=== PATIENT | female | born 2000 | race Caucasian/White ===

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

== ENCOUNTER 2024-07-31 13:17 | Emergency (ER) | payer MEDICAID ==
[~2024-07-31] VITALS: Ht 157.5 cm; Wt 92.5 kg
[2024-07-31 13:22] VITALS: BP 129/66; PULSE 94; TEMP 98.1; O2SAT 98
[2024-07-31] MEDS ORDERED: PROM118S5 PO (14:17)
[2024-07-31] MEDS ORDERED: ALBU8HFA INH (14:17)
[2024-07-31 14:22] VITALS: RESP 18
== END 2024-07-31 14:23 | disposition home or self-care (01) ==
LOC: ER 13:18
DX: B34.9 Viral infection, unspecified (principal); Z88.6 Allergy status to analgesic agent
CPT/HCPCS: 71045; 87502; 87503; 99284

== ENCOUNTER 2024-12-22 16:33 | Emergency (ER) | payer MEDICAID ==
[~2024-12-22] VITALS: Ht 157.5 cm; Wt 106.3 kg
[2024-12-22 16:37] VITALS: BP 132/84; PULSE 97; RESP 18; O2SAT 96
[2024-12-22] MEDS ORDERED: HYDR-3965 PO (17:30)
[2024-12-22] MEDS ORDERED: CLIN-97 PO (17:30)
--- NOTE | 2024-12-22 17:31 | Physician Documentation ---
HPI ~ General Chief Complaint: Tooth Problem Stated Complaint: MOUTH PAIN Time Seen by MD: 17:21 OK to notify your PCP?: Yes Source: patient Mode of Arrival: POV Exam Limitations: no limitations History of Present Illness HPI Comment This is a 24-year-old female who comes in complaining of some left-sided jaw pain with some mild facial swelling that began yesterday. She states that is she has a bad teeth are entire life but has not not then to see a dentist because there was not want available. States the pain radiates up to the left ear in his worse with opening and closing of the jaw. She denies fever or chills. Medication Reconciliation Allergies: Coded Allergies: ibuprofen (Verified Adverse Reaction, Unknown, STOMACH UPSET, 12/22/24) Scheduled Clindamycin HCL* (Clindamycin HCL*), 1 CAP PO Q6H Scheduled PRN Hydrocodone Bit/Acetaminophen 5/325 MG ([place] 5/325 MG), 1 TAB PO Q4H PRN for moderate or severe pain Past Medical History Past Medical History: *PSYCH* Past Surgical History: no surgical history Lives In: Home Physical Exam Vital Signs: Temperature: 98.9, Source: Temporal, Heart Rate: 97, Respiratory Rate: 18, BP: 132/84, Pulse Oximetry: 96, Weight: 106.300 Oxygen Flow Rate: 0 Pulse Oximetry Reflects: adequate oxygenation General Appearance: alert, WD/WN, no apparent distress Ear Bilateral EACs and TMs are within normal limits Teeth/Gums The patient has decayed teeth with caries in the left mandible jaw line. It mild erythema of the surrounding gums. No purulent discharge. Face Subtle edema to the left outer face with the area of the cheek in the mandible. No change in overlying skin color or temperature. No obvious fluctuance to palpation of the area of the there is tenderness of the mandible. Neurologic: guard immigration II-XII nml as tested Progress Results/Orders Results/Orders Vital Signs 12/22/24 12/22/24 16:37 17:47 Temp 98.9 98.9 Pulse 97 Resp 18 B/P (MAP) 132/84 Pulse Ox 96 O2 Flow Rate 0 Medical Decision Making Findings I will place the patient on clindamycin 300 mg 4 times a day for 10 days. You can follow up with a dentist for definitive care. Overall the patient is well- appearing Additional Comment dental infection. Periapical abscess. Facial cellulitis. Departure Disposition: HOME / SELF CARE / HOMELESS Impression: Primary Impression: Dental infection Condition: Stable Discharge Instructions: Dental Abscess, [id number] Additional Instructions: Take the medications as prescribed. Follow up with a dentist for definitive care. Referrals: NO PRIMARY CARE PROVIDER (PCP) Prescriptions Hydrocodone Bit/Acetaminophen 5/325 MG ([place] 5/325 MG) 5 Mg/325 Mg Tablet 1 TAB PO Q4H PRN for moderate or severe pain, #10 TAB Prov: NANCY MILES 12/22/24 Clindamycin HCL* (Clindamycin HCL*) 300 Mg Capsule 1 CAP PO Q6H, #40 CAP Prov: NANCY MILES 12/22/24 Signature Scribe Signature: No scribe Attestation: The note accurately reflects work and decisions made by me.Nancy VELASQUEZ 04/09 09:19 NANCY MILES Dec 22, 2024 17:31
[2024-12-22 17:47] VITALS: TEMP 98.9
== END 2024-12-22 17:48 | disposition home or self-care (01) ==
LOC: ER 16:34
DX: K04.7 Periapical abscess without sinus (principal); Z88.6 Allergy status to analgesic agent
CPT/HCPCS: 99283

== ENCOUNTER 2025-01-16 18:33 | Emergency (ER) | payer MEDICAID ==
[~2025-01-16] VITALS: Ht 157.5 cm; Wt 101.9 kg
[~2025-01-16 18:33] MED LIST: CLIN-224 PO; HYDR-3965 PO
[2025-01-16 18:58] VITALS: BP 134/94; PULSE 99; RESP 15; TEMP 97.6; O2SAT 100
== END 2025-01-16 21:04 | disposition left against medical advice (07) ==
LOC: ER 18:34
DX: R11.10 Vomiting, unspecified (principal); Z53.21 Procedure and treatment not carried out due to patient leaving prior to being seen by health care provider